=== PATIENT | female | born 1980 | race Caucasian/White ===

== ENCOUNTER 2020-09-20 09:20 | Emergency (ER) | payer BC ==
[2020-09-20 09:29] VITALS: TEMP 98.6
[2020-09-20] MEDS ORDERED: IPRATROPIUM-ALBUTEROL 3 ML NEB INHALATION STA (10:00)
[2020-09-20] MEDS ORDERED: MAGNESIUM SULFATE-D5W PMX 1 GM in DEXTROSE/WATER 1 100ML.BAG IVPB STA (10:00)
[2020-09-20] MEDS ORDERED: methylPREDNISolone SOD SUCCI 125 MG/2 ML VIAL IV STA (10:00)
[2020-09-20 10:27] LABS: Basophils # (A) 0.3 k/uL (0-0.2); Basophils % (A) 3 %; Eosinophils # (A) 1.9 k/uL (0-0.7); Eosinophils % (A) 23 %; HCT 47.1 % (34.0-46.0); HGB 16.4 gm/dL (11.4-16.0); Lymphocytes # (A) 1.8 k/uL (1.0-4.8); Lymphocytes % (A) 22 %; MCH 30.1 pg (25.0-35.0); MCHC 34.9 g/dL (31.0-37.0); MCV 86.2 fL (80.0-100.0); Mean Platelet Volume 6.6; Monocytes # (A) 0.3 k/uL (0-1.0); Monocytes % (A) 4 %; Neutrophils # (A) 3.7 k/uL (1.3-7.7); Neutrophils % (A) 45 %; Platelet Count 303 k/uL (150-450); RBC 5.46 m/uL (3.80-5.40); RDW 11.9 % (11.5-15.5); WBC 8.2 k/uL (3.8-10.6)
[2020-09-20 10:51] LABS: ALT 15 U/L (4-34); AST 22 U/L (14-36); African American GFR (CKD) >90 (>60 ml/min/1.73 sqM); Albumin 4.8 g/dL (3.5-5.0); Alkaline Phosphatase 64 U/L (38-126); Anion Gap 12 mmol/L; Blood Urea Nitrogen 9 mg/dL (7-17); Calcium 9.6 mg/dL (8.4-10.2); Carbon Dioxide 22 mmol/L (22-30); Chloride 105 mmol/L (98-107); Glucose 92 mg/dL (74-99); Non-African American GFR(CKD) 88 (>60 ml/min/1.73 sqM); Potassium 4.5 mmol/L (3.5-5.1); Sodium 139 mmol/L (137-145); Total Bilirubin 0.7 mg/dL (0.2-1.3); Total Protein 7.9 g/dL (6.3-8.2)
--- NOTE | 2020-09-20 11:00 | XR ---
EXAMINATION TYPE: XR chest 2V DATE OF EXAM: 09/20/2020 COMPARISON: NONE HISTORY: Chest pain TECHNIQUE: Frontal and lateral views of the chest are obtained. FINDINGS: There is no focal air space opacity. No evidence for pneumothorax. No pleural effusion. The cardiac silhouette size is within normal limits. The osseous structures are grossly intact. IMPRESSION: 1. No acute cardiopulmonary process.
--- NOTE | 2020-09-20 11:25 | ED ---
SOB HPI - General Chief Complaint: Shortness of Breath Stated Complaint: SOB Source: patient Mode of arrival: ambulatory Limitations: no limitations - History of Present Illness Initial Comments: The patient is a 40-year-old female with moderate persistent asthma who presents to the emergency room with reported as negative exacerbation. She reports that she normally has to be on steroids about once a month. She follows up with an asthma specialist. She reports that she has been taking her daily medications more sporadically than what she normally does. Yesterday she began having worsening shortness of breath with wheezing. She has been using her nebulizer at home without improvement in her symptoms. Last she was on steroids was approximately 2 months ago. She has not been on life support due to her asthma. She denies any cough, fevers. No sick contacts with similar symptoms. She denies any chest pain. No history of DVT or PE. No lower trauma swelling. 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 ROS Other: All systems not noted in ROS Statement are negative. Past Medical History Past Medical History: Asthma History of Any Multi-Drug Resistant Organisms: None Reported Past Surgical History: No Surgical Hx Reported Past Psychological History: No Psychological Hx Reported Smoking Status: Never smoker Past Alcohol Use History: Rare Past Drug Use History: None Reported General Exam Limitations: no limitations Course Vital Signs 09/20/20 09/20/20 09:27 11:50 Temperature 98.6 F Pulse Rate 100 87 Respiratory 20 16 Rate Blood Pressure 113/76 138/71 O2 Sat by Pulse 95 99 Oximetry Medical Decision Making - Medical Decision Making Upon arrival patient is placed in room 18. She does have inspiratory Please. Patient is provided with a DuoNeb breathing treatment. Laboratory studies are conducted. Portable chest x-rays performed. Laboratory studies and imaging are discussed with the patient. She is reevaluated and has improvement in her breathing status. Patient was also given 1 g of magnesium. At this time she will be discharged home. I will give her a prescription for steroids. Patient does have albuterol for her nebulizer available at home as well as an albuterol inhaler. I recommended patient follow up with her asthma specialist. Return to the emergency room for any new worsening symptoms. Patient refused that she had concern for and therefore agreed to chest x-ray without test. Patient was discharged home in stable condition - Lab Data Result diagrams: 09/20/20 10:07 09/20/20 10:07 Lab Results 09/20/20 09/20/20 Range/Units 10:07 10:07 WBC 8.2 (3.8-10.6) k/uL RBC 5.46 H (3.80-5.40) m/uL Hgb 16.4 H (11.4-16.0) gm/dL Hct 47.1 H (34.0-46.0) % MCV 86.2 (80.0-100.0) fL MCH 30.1 (25.0-35.0) pg MCHC 34.9 (31.0-37.0) g/dL RDW 11.9 (11.5-15.5) % Plt Count 303 (150-450) k/uL MPV 6.6 Neutrophils % 45 % Lymphocytes % 22 % Monocytes % 4 % Eosinophils % 23 % Basophils % 3 % Neutrophils # 3.7 (1.3-7.7) k/uL Lymphocytes # 1.8 (1.0-4.8) k/uL Monocytes # 0.3 (0-1.0) k/uL Eosinophils # 1.9 H (0-0.7) k/uL Basophils # 0.3 H (0-0.2) k/uL Manual Slide Review Performed RBC Morphology Normal Sodium 139 (137-145) mmol/L Potassium 4.5 (3.5-5.1) mmol/L Chloride 105 (98-107) mmol/L Carbon Dioxide 22 (22-30) mmol/L Anion Gap 12 mmol/L BUN 9 (7-17) mg/dL Creatinine 0.84 (0.52-1.04) mg/dL Est GFR (CKD-EPI)AfAm >90 (>60 ml/min/1.73 sqM) Est GFR (CKD-EPI)NonAf 88 (>60 ml/min/1.73 sqM) Glucose 92 (74-99) mg/dL Calcium 9.6 (8.4-10.2) mg/dL Total Bilirubin 0.7 (0.2-1.3) mg/dL AST 22 (14-36) U/L ALT 15 (4-34) U/L Alkaline Phosphatase 64 (38-126) U/L Total Protein 7.9 (6.3-8.2) g/dL Albumin 4.8 (3.5-5.0) g/dL - EKG Data EKG Comments: EKG demonstrates a normal sinus rhythm with a ventricular rate of 85. MT interval 160. QRS 64. QTC 423. No acute ST segment elevations or depressions concerning for ischemic changes Disposition Clinical Impression: Shortness of breath, Asthma exacerbation Disposition: HOME SELF-CARE Condition: Stable Instructions (If sedation given, give patient instructions): Asthma (ED) Additional Instructions: Please follow-up with your primary care doctor. Return to the emergency room for any new or worsening symptoms Prescriptions: predniSONE [Deltasone] 20 mg PO BID #10 tab Is patient prescribed a controlled substance at d/c from ED?: No Referrals: None,Stated [Primary Care Provider] - 1-2 days Time of Disposition: 11:25
[2020-09-20 11:51] VITALS: BP 138/71; PULSE 87; RESP 16
== END 2020-09-20 11:50 | disposition home or self-care (01) ==
LOC: EC 09:20
DX: J45.901 Unspecified asthma with (acute) exacerbation (principal)
CPT/HCPCS: 36415; 93005; 80053; 85025; 71046; 99285; 96365; 96375; J2930; J3475

== ENCOUNTER 2021-12-13 19:00 | Emergency (ER) | payer BC ==
[2021-12-13 20:03] VITALS: RESP 18; TEMP 98.7
[2021-12-13] MEDS ORDERED: IPRATROPIUM-ALBUTEROL 3 ML NEB INHALATION STA (20:26)
[2021-12-13] MEDS ORDERED: predniSONE 50 MG TAB PO STA (20:26)
--- NOTE | 2021-12-13 21:01 | ED ---
General Adult HPI - General Chief complaint: Upper Respiratory Infection Stated complaint: asthma Time Seen by Provider: 12/13/21 20:19 Source: patient Mode of arrival: ambulatory Limitations: no limitations - History of Present Illness Initial comments: This 41-year-old male with a past medical history of chronic asthma presents emergency department with asthma exacerbation is worsening over the last couple days. Patient states she is 21 weeks and was unsure how many times she can use her albuterol inhaler in 1 day. Patient states she has been experiencing increased wheezing at home over the last 2 days, however she has used her albuterol inhaler 5 times today and is still feeling wheezing. Patient states she usually has a backup steroid pack at home, however he states she did not have one home to take. Patient states she has been taking Advair and Xolair, she has been prescribed and taking and she was 33. Patient states she does feel more short of breath when she gets up and moves around and states this feels exactly like all of her other asthma exacerbations that are usually relieved with nebulized medication along with steroids. Patient denies any chest pain, abdominal pain, nausea, vomiting, vaginal bleeding, headache, dizziness, visual changes. - Related Data Previous Rx's Medication Instructions Recorded predniSONE [Deltasone] 20 mg PO BID #10 tab 09/20/20 predniSONE 50 mg PO DAILY #5 tab 12/13/21 Allergies Allergy/AdvReac Type Severity Reaction Status Date / Time No Known Allergies Allergy Verified 12/13/21 20:00 Review of Systems ROS Statement: Those systems with pertinent positive or pertinent negative responses have been documented in the HPI. ROS Other: All systems not noted in ROS Statement are negative. Past Medical History Past Medical History: Asthma History of Any Multi-Drug Resistant Organisms: None Reported Past Surgical History: No Surgical Hx Reported Past Psychological History: No Psychological Hx Reported Smoking Status: Never smoker Past Alcohol Use History: None Reported Past Drug Use History: None Reported General Exam Limitations: no limitations General appearance: alert, in no apparent distress Head exam: Present: atraumatic, normocephalic Eye exam: Present: normal appearance, PERRL, EOMI Pupils: Present: normal accommodation ENT exam: Present: mucous membranes moist Neck exam: Present: full ROM Respiratory exam: Present: normal lung sounds bilaterally, wheezes (Bilateral lungs with inspiratory and expiratory wheezing). Absent: respiratory distress, rales, rhonchi, stridor Cardiovascular Exam: Present: regular rate, normal rhythm, normal heart sounds. Absent: systolic murmur, diastolic murmur, rubs, gallop, clicks GI/Abdominal exam: Present: soft, normal bowel sounds. Absent: distended, tenderness, guarding, rebound, rigid Extremities exam: Present: normal inspection, full ROM, normal capillary refill. Absent: tenderness, pedal edema, joint swelling, calf tenderness Back exam: Present: full ROM. Absent: tenderness, CVA tenderness (R), CVA tenderness (L), paraspinal tenderness, vertebral tenderness Neurological exam: Present: alert, oriented X3, CN II-XII intact Psychiatric exam: Present: normal affect, normal mood Skin exam: Present: warm, dry, intact, normal color. Absent: rash Course Vital Signs 12/13/21 12/13/21 12/13/21 20:00 20:52 20:59 Temperature 98.7 F Pulse Rate 124 H 110 H 114 H Respiratory 18 Rate Blood Pressure 111/71 O2 Sat by Pulse 98 Oximetry 12/13/21 22:23 Temperature Pulse Rate 107 H Respiratory 18 Rate Blood Pressure 115/63 O2 Sat by Pulse 97 Oximetry Medical Decision Making - Medical Decision Making This 41-year-old female with past medical history of asthma presents emergency Department with asthma exacerbation and increased wheezing over the last couple of days. DuoNeb and steroid given patient which significantly decreased her symptoms. Patient states she was to go home and declined heart tones due to her having them yesterday and stating she and feels much better. On exam, she did have bilateral wheezing on expiration, however it had significantly decreased prior to treatment. Patient to return to the emergency department with any new, worsening, or concerning symptoms. Patient denied any shortness of breath before discharge. She states she does have a nebulizer at home and does not need refills on any of her albuterol or nebulized medication. Prednisone given for 5 days at home. Return precautions were discussed. Patient verbally agreed to plan. Patient sent home in stable condition. Discussed with my attending, . Disposition Clinical Impression: Asthma exacerbation Disposition: HOME SELF-CARE Condition: Stable Instructions (If sedation given, give patient instructions): Asthma (ED) Additional Instructions: Please return to emergency department with any new, worsening, or concerning symptoms. Up with primary care provider or clerk carrier in next 24-48 hours. Prescriptions: predniSONE 50 mg PO DAILY #5 tab Is patient prescribed a controlled substance at d/c from ED?: No Referrals: Korin Danielle DO [Primary Care Provider] - 1-2 days Time of Disposition: 21:53
[2021-12-13 22:24] VITALS: BP 115/63; PULSE 107
== END 2021-12-13 22:18 | disposition home or self-care (01) ==
LOC: EC 19:00
DX: O99.512 Diseases of the respiratory system complicating pregnancy, second trimester (principal); J45.901 Unspecified asthma with (acute) exacerbation; Z3A.21 21 weeks gestation of pregnancy
CPT/HCPCS: 99283; 94640; 87635; J7512

== ENCOUNTER 2022-02-09 18:58 | Emergency (ER) | payer BC ==
[2022-02-09 19:03] VITALS: TEMP 98.4
--- NOTE | 2022-02-09 19:54 | US ---
EXAMINATION TYPE: US venous doppler duplex LE LT DATE OF EXAM: 02/09/2022 7:43 PM COMPARISON: NONE CLINICAL HISTORY: swelling r/o dvt. Left foot swelling SIDE PERFORMED: Left TECHNIQUE: The lower extremity deep venous system is examined utilizing real time linear array sonog shana with graded compression, doppler sonography and color-flow sonography. VESSELS IMAGED: Common Femoral Vein Deep Femoral Vein Greater Saphenous Vein * Femoral Vein Popliteal Vein Small Saphenous Vein * Proximal Calf Veins (* superficial vessels) Left Leg: Appears negative for DVT IMPRESSION: No evidence of deep vein thrombosis in the left leg.
--- NOTE | 2022-02-09 22:04 | ED ---
Extremity Problem HPI - General Chief complaint: Extremity Problem,Nontraumatic Stated complaint: 30wks preg/Poss DVT Time Seen by Provider: 02/09/22 21:30 Source: patient Mode of arrival: ambulatory Limitations: no limitations - History of Present Illness Initial comments: 41-year-old female who is currently 30 weeks presents to the emergency department with left leg swelling. Patient states that she has had bilateral leg swelling however the left is worse than the right. She does wear compression stockings and has been putting her legs up when she is not on her feet. States that the swelling seems to go down of the right leg but not the left. She spoke with her MAPPING SPECIALIST who sent her into the hospital for a ultrasound. No history of DVT or PE. No chest pain or shortness of breath. No other alleviating, precipitating or modifying factors - Related Data Previous Rx's Medication Instructions Recorded predniSONE [Deltasone] 20 mg PO BID #10 tab 09/20/20 predniSONE 50 mg PO DAILY #5 tab 12/13/21 Allergies Allergy/AdvReac Type Severity Reaction Status Date / Time No Known Allergies Allergy Verified 02/09/22 19:02 Review of Systems ROS Statement: Those systems with pertinent positive or pertinent negative responses have been documented in the HPI. ROS Other: All systems not noted in ROS Statement are negative. Past Medical History Past Medical History: Asthma History of Any Multi-Drug Resistant Organisms: None Reported Past Surgical History: No Surgical Hx Reported Past Psychological History: No Psychological Hx Reported Smoking Status: Never smoker Past Alcohol Use History: None Reported Past Drug Use History: None Reported General Exam Limitations: no limitations General appearance: alert, in no apparent distress Head exam: Present: atraumatic, normocephalic, normal inspection Eye exam: Present: normal appearance, PERRL, EOMI. Absent: scleral icterus, conjunctival injection, periorbital swelling ENT exam: Present: normal exam, mucous membranes moist Neck exam: Present: normal inspection. Absent: tenderness, meningismus, lymphadenopathy Respiratory exam: Present: normal lung sounds bilaterally. Absent: respiratory distress, wheezes, rales, rhonchi, stridor Cardiovascular Exam: Present: regular rate, normal rhythm, normal heart sounds. Absent: systolic murmur, diastolic murmur, rubs, gallop, clicks GI/Abdominal exam: Present: soft, normal bowel sounds. Absent: distended, tenderness, guarding, rebound, rigid Extremities exam: Present: normal inspection, full ROM, normal capillary refill, pedal edema (left >right, 1 +). Absent: tenderness, joint swelling, calf tenderness Back exam: Present: normal inspection Neurological exam: Present: alert, oriented X3, CN II-XII intact Psychiatric exam: Present: normal affect, normal mood Skin exam: Present: warm, dry, intact, normal color. Absent: rash Course Vital Signs 02/09/22 02/09/22 02/09/22 19:00 21:52 22:17 Temperature 98.4 F Pulse Rate 106 H 98 Respiratory 20 18 Rate Blood Pressure 145/83 131/74 116/84 O2 Sat by Pulse 98 96 Oximetry Medical Decision Making - Medical Decision Making Upon arrival patient placed into room 6. The rest of physical exam is performed. Patient does have ultrasound performed which is negative for DVT. Bedside ultrasound is performed of the baby which demonstrates positive heart tones and movement. Patient discharged home in stable condition. Instructed to follow-up with her MAPPING SPECIALIST and return for any new or worsening symptoms. Disposition Clinical Impression: Leg swelling in Disposition: HOME SELF-CARE Condition: Stable Instructions (If sedation given, give patient instructions): Leg Edema (ED) Additional Instructions: Please follow-up with your MAPPING SPECIALIST. Return to the emergency room for any new or worsening symptoms. Wear your compression socks and elevate your feet as much as possible. Congratulations! Is patient prescribed a controlled substance at d/c from ED?: No Referrals: Korin Danielle DO [Primary Care Provider] - 1-2 days Time of Disposition: 22:04
[2022-02-09 22:18] VITALS: BP 116/84; PULSE 98; RESP 18
== END 2022-02-09 22:18 | disposition home or self-care (01) ==
LOC: EC 18:58
DX: O99.513 Diseases of the respiratory system complicating pregnancy, third trimester (principal); M79.89 Other specified soft tissue disorders; J45.909 Unspecified asthma, uncomplicated; Z3A.30 30 weeks gestation of pregnancy
CPT/HCPCS: 99284

== ENCOUNTER 2023-02-16 06:15 | Emergency (ER) | payer BC ==
[2023-02-16 06:21] VITALS: RESP 18; TEMP 97.8
[2023-02-16] MEDS ORDERED: methylPREDNISolone SOD SUCCI 125 MG/2 ML VIAL IV STA (06:27)
[2023-02-16] MEDS ORDERED: IPRATROPIUM-ALBUTEROL 3 ML NEB INHALATION STA (06:27)
--- NOTE | 2023-02-16 06:32 | ED ---
General Adult HPI - General Chief complaint: Shortness of Breath Stated complaint: asthma Time Seen by Provider: 02/16/23 06:23 Source: patient, RN notes reviewed Mode of arrival: ambulatory Limitations: no limitations - History of Present Illness Initial comments: 42-year-old female presents emergency Department chief complaint shortness breath. Patient states she's been having increasing shortness but last 3-4 days. Patient states she does have underlying asthma and states that she's follows up with an coater smoking pipe/emergency medicine nurse practitioner. Patient states she's been doing her inhalers, nebulizer with no relief. She states she has been in hospice several times in the past. Patient states she is on steroids at least 10 times a year. Patient does complain of chest tightness no history of PE or DVT. - Related Data Previous Rx's Medication Instructions Recorded predniSONE [Deltasone] 20 mg PO BID #10 tab 09/20/20 predniSONE 50 mg PO DAILY #5 tab 12/13/21 predniSONE 50 mg PO DAILY #5 tab 02/16/23 Allergies Allergy/AdvReac Type Severity Reaction Status Date / Time No Known Allergies Allergy Verified 02/09/22 19:02 Review of Systems ROS Statement: Those systems with pertinent positive or pertinent negative responses have been documented in the HPI. ROS Other: All systems not noted in ROS Statement are negative. Past Medical History Past Medical History: Asthma History of Any Multi-Drug Resistant Organisms: None Reported Past Surgical History: Section Past Psychological History: No Psychological Hx Reported Smoking Status: Former smoker Past Alcohol Use History: None Reported Past Drug Use History: None Reported General Exam Limitations: no limitations General appearance: alert, in distress Head exam: Present: atraumatic, normocephalic, normal inspection Eye exam: Present: normal appearance, PERRL, EOMI. Absent: scleral icterus, conjunctival injection, periorbital swelling ENT exam: Present: normal exam, normal oropharynx, mucous membranes moist Neck exam: Present: normal inspection. Absent: tenderness, meningismus, lymphadenopathy Respiratory exam: Present: respiratory distress, wheezes, accessory muscle use. Absent: normal lung sounds bilaterally, rales, rhonchi, stridor Cardiovascular Exam: Present: normal rhythm, tachycardia, normal heart sounds. Absent: systolic murmur, diastolic murmur, rubs, gallop, clicks Course Vital Signs 02/16/23 02/16/23 02/16/23 06:17 06:35 06:55 Temperature 97.8 F Pulse Rate 115 H 116 H 122 H Respiratory 18 Rate Blood Pressure 113/64 O2 Sat by Pulse 92 L Oximetry 02/16/23 02/16/23 07:24 07:28 Temperature Pulse Rate 115 H Respiratory 18 18 Rate Blood Pressure 132/65 O2 Sat by Pulse 97 Oximetry EKG Findings - EKG Comments: EKG Findings:: EKG performed at 6:32 sinus tachycardia with a rate of 108 GA 160 QRS 77 QT/QTC 321/385 - EKG Results: EKG: interpreted by [facility]KIE Medical Decision Making - Medical Decision Making Was pt. sent in by a medical professional or institution (, PA, LINOLEUM PRINTER, urgent care, hospital, or shelter...) When possible be specific @ -No Did you speak to anyone other than the patient for history (EMS, parent, family, police, friend...)? What history was obtained from this source @ -No Did you review nursing and triage notes (agree or disagree)? Why? @ -I reviewed and agree with nursing and triage notes Were old charts reviewed (outside hosp., previous admission, EMS record, old EKG, old radiological studies, urgent care reports/EKG's, shelter records)? Report findings @ -No old charts were reviewed Differential Diagnosis (chest pain, altered mental status, abdominal pain women, abdominal pain men, vaginal bleeding, weakness, fever, dyspnea, syncope, headache, dizziness, GI bleed, back pain, seizure, CVA, palpatations, mental health, musculoskeletal)? @ -Differential Dyspnea: Coronary syndrome, arrhythmia, tamponade, asthma, COPD, pulmonary embolism, pneumonia, pneumothorax, pulmonary effusion, anaphylaxis, diabetic ketoacidosis, flailed chest, pulmonary contusion, diaphragmatic rupture, anemia, neuromuscular, this is not meant to be an all-inclusive list. EKG interpreted by me (3pts min.). @ -As above X-rays interpreted by me (1pt min.). @ -Chest x-ray shows no acute cardiopulmonary process CT interpreted by me (1pt min.). @ -None done U/S interpreted by me (1pt. min.). @ -None done What testing was considered but not performed or refused? (CT, X-rays, U/S, labs)? Why? @ -None What meds were considered but not given or refused? Why? @ -None Did you discuss the management of the patient with other professionals (professionals i.e. , PA, LINOLEUM PRINTER, lab, RT, psych nurse, social media marketing analyst, chimney builder brick, teacher, law enforcement officer, pillowcase cutter)? Give summary @ -No Was smoking cessation discussed for >3mins.? @ -No Was critical care preformed (if so, how long)? @ -No Were there social determinants of health that impacted care today? How? (Homelessness, low income, unemployed, alcoholism, drug addiction, transportation, low edu. Level, literacy, decrease access to med. care, skilled nursing, rehab)? @ -No Was there de-escalation of care discussed even if they declined (Discuss DNR or withdrawal of care, Hospice)? DNR status @ -No What co-morbidities impacted this encounter? (DM, HTN, Smoking, COPD, CAD, Cancer, CVA, ARF, Chemo, Hep., AIDS, mental health diagnosis, sleep apnea, morbid obesity)? @ -None Was patient admitted / discharged? Hospital course, mention meds given and route, prescriptions, significant lab abnormalities, going to OR and other pertinent info. @ -Discharge patient had chest x-ray, labs, DuoNeb treatment steroids. Patient states she feels greatly improved. Patient's pulse ox has improved she states she does not feel short of breath feels comfortable discharged with oral steroids she has essential amount of glass for her nebulizer. Patient is advised follow-up with her emergency medicine nurse practitioner and return for any worsening change in symptoms. Undiagnosed new problem with uncertain prognosis? @ -No Drug Therapy requiring intensive monitoring for toxicity (Heparin, Nitro, Insulin, Cardizem)? @ -No Were any procedures done? @ -No Diagnosis/symptom? @ -[Asthma exacerbation Acute, or Chronic, or Acute on Chronic? @ -Acute on chronic Uncomplicated (without systemic symptoms) or Complicated (systemic symptoms)? @ -Complicated Side effects of treatment? @ -No Exacerbation, Progression, or Severe Exacerbation? @ -Exacerbation Poses a threat to life or bodily function? How? (Chest pain, [place], [place], pneumonia, PE, COPD, DKA, ARF, appy, cholecystitis, CVA, Diverticulitis, Homicidal, Suicid al, threat to staff... and all critical care pts) @ -No - Lab Data Result diagrams: 02/16/23 06:57 02/16/23 06:57 Lab Results 02/16/23 02/16/23 02/16/23 Range/Units 06:57 06:57 06:57 WBC 8.3 (3.8-10.6) k/uL RBC 4.98 (3.80-5.40) m/uL Hgb 14.6 (11.4-16.0) gm/dL Hct 42.2 (34.0-46.0) % MCV 84.8 (80.0-100.0) fL MCH 29.3 (25.0-35.0) pg MCHC 34.6 (31.0-37.0) g/dL RDW 13.0 (11.5-15.5) % Plt Count 253 (150-450) k/uL MPV 7.0 Neutrophils % 62 % Lymphocytes % 15 % Monocytes % 5 % Eosinophils % 16 % Basophils % 1 % Neutrophils # 5.1 (1.3-7.7) k/uL Lymphocytes # 1.3 (1.0-4.8) k/uL Monocytes # 0.4 (0-1.0) k/uL Eosinophils # 1.3 H (0-0.7) k/uL Basophils # 0.1 (0-0.2) k/uL D-Dimer 0.36 (<0.60) mg/L FEU Sodium 138 (137-145) mmol/L Potassium 3.9 (3.5-5.1) mmol/L Chloride 108 H (98-107) mmol/L Carbon Dioxide 22 (22-30) mmol/L Anion Gap 8 mmol/L BUN 9 (7-17) mg/dL Creatinine 0.77 (0.52-1.04) mg/dL Est GFR (CKD-EPI)AfAm >90 (>60 ml/min/1.73 sqM) Est GFR (CKD-EPI)NonAf >90 (>60 ml/min/1.73 sqM) Glucose 114 H (74-99) mg/dL Calcium 8.7 (8.4-10.2) mg/dL Magnesium 2.0 (1.6-2.3) mg/dL Total Bilirubin 0.7 (0.2-1.3) mg/dL AST 17 (14-36) U/L ALT 15 (4-34) U/L Alkaline Phosphatase 66 (38-126) U/L Troponin I (0.000-0.034) ng/mL Total Protein 7.1 (6.3-8.2) g/dL Albumin 4.0 (3.5-5.0) g/dL 02/16/23 Range/Units 06:57 WBC (3.8-10.6) k/uL RBC (3.80-5.40) m/uL Hgb (11.4-16.0) gm/dL Hct (34.0-46.0) % MCV (80.0-100.0) fL MCH (25.0-35.0) pg MCHC (31.0-37.0) g/dL RDW (11.5-15.5) % Plt Count (150-450) k/uL MPV Neutrophils % % Lymphocytes % % Monocytes % % Eosinophils % % Basophils % % Neutrophils # (1.3-7.7) k/uL Lymphocytes # (1.0-4.8) k/uL Monocytes # (0-1.0) k/uL Eosinophils # (0-0.7) k/uL Basophils # (0-0.2) k/uL D-Dimer (<0.60) mg/L FEU Sodium (137-145) mmol/L Potassium (3.5-5.1) mmol/L Chloride (98-107) mmol/L Carbon Dioxide (22-30) mmol/L Anion Gap mmol/L BUN (7-17) mg/dL Creatinine (0.52-1.04) mg/dL Est GFR (CKD-EPI)AfAm (>60 ml/min/1.73 sqM) Est GFR (CKD-EPI)NonAf (>60 ml/min/1.73 sqM) Glucose (74-99) mg/dL Calcium (8.4-10.2) mg/dL Magnesium (1.6-2.3) mg/dL Total Bilirubin (0.2-1.3) mg/dL AST (14-36) U/L ALT (4-34) U/L Alkaline Phosphatase (38-126) U/L Troponin I <0.012 (0.000-0.034) ng/mL Total Protein (6.3-8.2) g/dL Albumin (3.5-5.0) g/dL Disposition Clinical Impression: Asthma exacerbation Disposition: HOME SELF-CARE Condition: Stable Instructions (If sedation given, give patient instructions): Asthma (ED) Additional Instructions: Please return to the Emergency Department if symptoms worsen or any other concerns. Prescriptions: predniSONE 50 mg PO DAILY #5 tab Is patient prescribed a controlled substance at d/c from ED?: No Referrals: Korin Danielle DO [Primary Care Provider] - 1-2 days Time of Disposition: 07:45
--- NOTE | 2023-02-16 07:15 | XR ---
EXAMINATION TYPE: XR chest 2V DATE OF EXAM: 02/16/2023 COMPARISON: Chest x-ray September 20, 2020 HISTORY: Difficulty in breathing TECHNIQUE: Frontal and lateral views of the chest are obtained. FINDINGS: There is no suspicious new focal air space opacity, pleural effusion, or pneumothorax seen . The cardiac silhouette size is stable and within normal limits. Osseous structures are intact. IMPRESSION: No acute cardiopulmonary process. No significant change from prior.
[2023-02-16 07:21] LABS: ALT 15 U/L (4-34); AST 17 U/L (14-36); African American GFR (CKD) >90 (>60 ml/min/1.73 sqM); Alkaline Phosphatase 66 U/L (38-126); Anion Gap 8 mmol/L; Blood Urea Nitrogen 9 mg/dL (7-17); Calcium 8.7 mg/dL (8.4-10.2); Carbon Dioxide 22 mmol/L (22-30); Chloride 108 mmol/L (98-107); Glucose 114 mg/dL (74-99); Non-African American GFR(CKD) >90 (>60 ml/min/1.73 sqM); Potassium 3.9 mmol/L (3.5-5.1); Sodium 138 mmol/L (137-145); Total Bilirubin 0.7 mg/dL (0.2-1.3); Total Protein 7.1 g/dL (6.3-8.2)
[2023-02-16 07:24] LABS: Basophils # (A) 0.1 k/uL (0-0.2); Basophils % (A) 1 %; Eosinophils # (A) 1.3 k/uL (0-0.7); Eosinophils % (A) 16 %; HCT 42.2 % (34.0-46.0); HGB 14.6 gm/dL (11.4-16.0); Lymphocytes # (A) 1.3 k/uL (1.0-4.8); Lymphocytes % (A) 15 %; MCH 29.3 pg (25.0-35.0); MCHC 34.6 g/dL (31.0-37.0); MCV 84.8 fL (80.0-100.0); Monocytes # (A) 0.4 k/uL (0-1.0); Monocytes % (A) 5 %; Neutrophils # (A) 5.1 k/uL (1.3-7.7); Neutrophils % (A) 62 %; Platelet Count 253 k/uL (150-450); RBC 4.98 m/uL (3.80-5.40); WBC 8.3 k/uL (3.8-10.6)
[2023-02-16 07:58] VITALS: BP 124/71; PULSE 114
== END 2023-02-16 07:59 | disposition home or self-care (01) ==
LOC: EC 06:15
DX: J45.901 Unspecified asthma with (acute) exacerbation (principal); Z87.891 Personal history of nicotine dependence
CPT/HCPCS: 36415; 94640 ×2; 93005; 85379; 80053; 83735; 84484; 85025; 71046; 99285; 96374; J2930